=== PATIENT | female | born 1995 | race Caucasian/White ===

== ENCOUNTER 2016-11-21 06:05 | Inpatient (IN) | payer OTHER ==
[~2016-11-21] VITALS: Ht 172.7 cm; Wt 80.7 kg
[2016-11-21] MEDS ORDERED: IV RINGERS,LACTATED 1000ML 1,000 ML IV SCH ×2 (06:08→09:41)
[2016-11-21] MEDS ORDERED: MAG HYDROX/ALUMINUM HYD/SIMETH 30 ML ORAL.SUSP PO PRN ×2 (06:15→12:45)
[2016-11-21] MEDS ORDERED: FENTANYL PF 100 MCG/2 ML VIAL. IV PRN (06:15)
[2016-11-21] MEDS ORDERED: ONDANSETRON PF 4 MG/2 ML VIAL. IV PRN (06:15)
[2016-11-21] MEDS ORDERED: TERBUTALINE 1 MG/ML VIAL. SQ PRN (06:15)
[2016-11-21] MEDS ORDERED: BUTORPHANOL 2 MG/ML VIAL. IV PRN (06:15)
[2016-11-21] MEDS ORDERED: LIDOCAINE 1% PF 30 ML VIAL. INJ PRN (06:15)
[2016-11-21] MEDS ORDERED: IBUPROFEN 600 MG TABLET. PO PRN (06:15)
[2016-11-21] MEDS ORDERED: 0.9 % SODIUM CHLORIDE 10 ML DISP.SYRIN. IV PRN ×2 (06:15→12:45)
[2016-11-21] MEDS ORDERED: ACETAMINOPHEN 325 MG TABLET. PO PRN ×2 (06:15→12:45)
[2016-11-21] MEDS ORDERED: OXYTOCIN 30 UNIT/500 ML PREMIX 500 ML IV PRN ×3 (06:15→12:45)
[2016-11-21 07:06] LABS: HEMATOCRIT 34.8 % (36.0-47.0); HEMOGLOBIN 11.3 g/dL (12.0-15.5); RED BLOOD COUNT 4.76 x10^6/uL (3.50-5.40); RED CELL DISTRIBUTION WIDTH 16.5 % (11.5-14.5); WHITE BLOOD COUNT 8.7 x10^3/uL (4.0-11.0)
[2016-11-21] MEDS ORDERED: NALOXONE 0.4 MG/ML VIAL. IV PRN (09:45)
[2016-11-21] MEDS ORDERED: FENTANYL PF 100 MCG/2 ML VIAL. EPI PRN (09:45)
[2016-11-21] MEDS ORDERED: ROPIVacaine 0.2% IN 0.9%NACL PF 40 MG/20 ML DISP.SYRIN. EPI PRN (09:45)
[2016-11-21] MEDS ORDERED: L&D EPIDURAL CASSETTE 100 ML EP PRN (09:45)
[2016-11-21] MEDS ORDERED: BUPIVACAINE MPF 0.25% 10 ML VIAL. EPI PRN (09:45)
--- NOTE | 2016-11-21 12:38 | PDOC ---
VAGINAL DELIVERY DATE DATE: 11/21/16 TIME: 12:35 : 2 Para: 1 EDC: November 26, 2016 VAGINAL DELIVERY: VTX VACCUM ASSISTED: No PLACENTA: Spontaneous SEX: Male WEIGHT 9/ Nuchal Cord: No Amniotic Fluid: Clear EPISIOTOMY: No EXTENSION: Yes EBL 400cc COMPLICATIONS None CONDITION Stable Signs of Intrauterine Infectio: None Shoulder Dystocia: No DIAGNOSIS TIUP del Problems: TRIXIE GILL MD Nov 21, 2016 12:38
[2016-11-21] MEDS ORDERED: MAGNESIUM HYDROXIDE 2,400 MG/30 ML ORAL.SUSP. PO PRN (12:45)
[2016-11-21] MEDS ORDERED: SIMETHICONE 80 MG TAB.CHEW PO PRN (12:45)
[2016-11-21] MEDS ORDERED: HYDROCORTISONE 1% TOPICAL OINTMENT 30GM TUBE. TP PRN (12:45)
[2016-11-21] MEDS ORDERED: diphenhydrAMINE HCL 25 MG CAPSULE PO PRN (12:45)
[2016-11-21] MEDS ORDERED: BENZOCAINE 20% TOPICAL AEROSOL SPRAY 57GM CAN. TP PRN (12:45)
[2016-11-21] MEDS ORDERED: PHENYLEPH/MINERAL OIL/PETROLAT RECTAL OINTMENT 28GM TUBE. RC PRN (12:45)
[2016-11-21] MEDS ORDERED: ZOLPIDEM 5 MG TABLET. PO PRN (12:45)
[2016-11-21] MEDS: IBUPROFEN 800 MG TABLET. PO SCH (15:05)
[2016-11-21 16:30] VITALS: BP 118/70
[2016-11-21] MEDS ORDERED: FERROUS SULFATE 325 MG TABLET. PO SCH (17:00)
[2016-11-21 17:50] VITALS: BP 120/71
[2016-11-21 23:18] VITALS: BP 125/74
[2016-11-22] MEDS: IBUPROFEN 800 MG TABLET. PO SCH ×3 (01:55→23:41)
[2016-11-22 06:32] VITALS: BP 109/66
[2016-11-22] MEDS: HYDROCODONE/APAP 5/325MG TABLET. PO PRN ×2 (08:03→17:46)
[2016-11-22 15:00] VITALS: BP 100/53
--- NOTE | 2016-11-22 15:28 | PDOC ---
Provider Note Provider Note Doing well VSS Uterus NTTP Fu in AM TRIXIE GILL MD Nov 22, 2016 15:28
[2016-11-22] MEDS ORDERED: DIPHTH,PERTUSS(ACELL),TET TOX 0.5 ML DISP.SYRIN. VAX IM ONE (19:00)
[2016-11-22 22:00] VITALS: BP 114/67
[2016-11-23] MEDS: IBUPROFEN 800 MG TABLET. PO SCH (08:52)
--- NOTE | 2016-11-23 09:27 | PDOC3 ---
OB DISCHARGE SUMMARY DATE OF ADMISSION: 11/21/16 DATE OF DISCHARGE: 11/23/16 REASON FOR ADMISSION: Induction of labor PROCEDURES: Ultrasound INTRAPARTUM PROCEDURES: Spontanous Vag Deliv PROCEDURES: None OPERATIONS: None DISCHARGE DIAGNOSIS: Term Delivered DISCHARGE INFORMATION: Activity, Diet HOSPITAL COURSE unremarkable CONDITION AT DISCHARGE Stable TRIXIE GILL MD Nov 23, 2016 09:27
[2016-11-23] MEDS ORDERED: HYDR-971 PO (09:32)
[2016-11-23] MEDS ORDERED: NAPR500T3 PO (09:32)
--- NOTE | 2016-11-23 10:19 | PDOC1 ---
OB - History Hx of Present Care: Good Care Ultrasounds: Normal mid trimester US Obstetrical Complications: None Medical Complications: None Past Family/Social History * Past Medical, Surgical, Family and Obstetric Histories reviewed from chart. Rubella: Immune RPR/VDRL: Negative GBS Status: Negative HBsAG: Negative OB - Chief Complaint & HPI Date of Admission: Date of Admission: Nov 21, 2016 at 06:05 Chief Complaint/History : 2 Para: 1 EDC: November 26, 2016 Reason for admission: induction of labor Indication for induction: other Admission Nurse Assessment Rev: Yes Problems: OB - Admission Exam Physical Exam Vitals: VS - Last 72 Hours, by Label Date Time Temp Pulse Resp B/P Pulse Ox O2 Delivery O2 Flow Rate FiO2 11/22/16 22:00 98.0 84 18 114/67 100 98.0 11/22/16 17:46 18 Room Air 11/22/16 15:00 98.1 87 18 100/53 96 Room Air 98.1 11/22/16 10:00 18 11/22/16 08:03 18 Room Air 11/22/16 06:32 98.1 81 18 109/66 98.1 11/21/16 23:18 98.7 94 18 125/74 98.7 11/21/16 17:50 98.2 98 18 120/71 98.2 11/21/16 16:30 98.1 91 16 118/70 99 98.1 11/21/16 10:27 22 HEENT: Normal, Nasal Mucosa Normal, Oropharynx Normal, Moist Membranes, Fontanelles Normal Heart: Regular Rate Lungs: Clear, Equal Abdomen: Gravid Extremities: Normal Pulses, No tenderness or swelling Reflexes: Normal Cervical Dilatation: 2cm Effacement: 50% Station: -2 Membranes: Intact Amniotic Fluid: Clear Heart Rate: Normal Accelerations: Accelerations Present Contractions on Admission: >10 Minutes Apart Intensity: Moderate Assessment/Plan Assessment/Plan TIUP Induction ACSVD TRIXIE GILL MD Nov 23, 2016 10:19
[2016-11-23 15:03] VITALS: BP 110/66
== END 2016-11-23 16:26 | disposition home or self-care (01) | DRG 775 ==
LOC: 3 SO LND 06:05 → 3 NORTH 14:59
PROVIDERS: ADMIT Specialist; ATTEND Specialist
PROC: 10E0XZZ Delivery of Products of Conception, External Approach (ICD-10-PCS; principal; 2016-11-21)
PROC: 3E033VJ Introduction of Other Hormone into Peripheral Vein, Percutaneous Approach (ICD-10-PCS; 2016-11-21)
DX: O80 Encounter for full-term uncomplicated delivery (principal); Z3A.38 38 weeks gestation of pregnancy; Z37.0 Single live birth
CPT/HCPCS: 36415; 85014; 85027; 86593; 86850; 86900; 86901; 90715; J2590; J3010; J7120

== ENCOUNTER 2017-05-18 16:55 | Emergency (ER) | payer OTHER ==
[~2017-05-18] VITALS: Ht 167.6 cm; Wt 103.4 kg
[~2017-05-18 16:55] MED LIST: HYDR-971 PO; NAPR500T4 PO
--- NOTE | 2017-05-18 17:17 | PHYS DOC ---
Past Medical History Past Medical History: No Pertinent History Past Surgical History: No Surgical History Alcohol Use: None Drug Use: None Adult General Chief Complaint Chief Complaint: ABDOMINAL PAIN HPI HPI Patient is a 21 year old female presents the ED complaining of right upper quadrant pain 2 days. Patient states the pain is worse after eating. Describes the pain as crampy. Rates the pain as 8 out of 10. Associated symptoms include nausea. Denies chest pain, shortness of breath, dizziness, weakness, vomiting, fever, dysuria or vaginal discharge/bleeding. Review of Systems Review of Systems Constitutional: Denies fever or chills [] Eyes: Denies change in visual acuity, redness, or eye pain [] HENT: Denies nasal congestion or sore throat [] Respiratory: Denies cough or shortness of breath [] Cardiovascular: No additional information not addressed in HPI [] GI: Complains of abdominal pain and nausea. Denies vomiting, bloody stools or diarrhea [] : Denies dysuria or hematuria [] Musculoskeletal: Denies back pain or joint pain [] Integument: Denies rash or skin lesions [] Neurologic: Denies headache, focal weakness or sensory changes [] Endocrine: Denies polyuria or polydipsia [] Current Medications Current Medications Current Medications Medications (Trade) Dose Ordered Sig/Tiffany Start Time Stop Time Status Last Admin Dose Admin Ceftriaxone Sodium 50 ml @ 100 mls/hr 1X ONCE 05/18/17 18:00 05/18/17 18:29 DC 05/18/17 18:05 100 MLS/HR Ketorolac Tromethamine (Toradol) 30 mg 1X ONCE 05/18/17 18:45 05/18/17 18:46 DC 05/18/17 18:51 30 MG Allergies Allergies Allergies Coded Allergies Type Severity Reaction Last Updated Verified No Known Drug Allergies 03/17/15 No Physical Exam Physical Exam Constitutional: Well developed, well nourished, no acute distress, non-toxic appearance. [] HENT: Normocephalic, atraumatic, bilateral external ears normal, oropharynx moist, no oral exudates, nose normal. [] Eyes: PERRLA, EOMI, conjunctiva normal, no discharge. [] Neck: Normal range of motion, no tenderness, supple, no stridor. [] Cardiovascular:Heart rate regular rhythm, no murmur [] Lungs & Thorax: Bilateral breath sounds clear to auscultation [] Abdomen: Bowel sounds normal, soft, MILD RUQ TENDERNESS, no masses, no pulsatile masses. [] Skin: Warm, dry, no erythema, no rash. [] Back: No tenderness, no CVA tenderness. [] Extremities: No tenderness, no cyanosis, no clubbing, ROM intact, no edema. [] Neurologic: Alert and oriented X 3, normal motor function, normal sensory function, no focal deficits noted. [] Psychologic: Affect normal, judgement normal, mood normal. [] Current Patient Data Vital Signs Vital Signs Date Time Temp Pulse Resp B/P (MAP) Pulse Ox O2 Delivery O2 Flow Rate FiO2 05/18/17 19:45 85 16 127/88 (101) 98 Room Air 05/18/17 17:01 99.3 99.3 Lab Values Laboratory Tests Test 05/18/17 17:01 05/18/17 17:06 05/18/17 17:12 Urine Collection Type Unknown Urine Color Yellow Urine Clarity Clear Urine pH 5.5 Urine Specific [place] 1.025 Urine Protein Negative mg/dL (NEG-TRACE) Urine Glucose (UA) Negative mg/dL (NEG) Urine Ketones (Stick) Negative mg/dL (NEG) Urine Blood Negative (NEG) Urine Nitrite Positive (NEG) Urine Bilirubin Negative (NEG) Urine Urobilinogen Dipstick 0.2 mg/dL (0.2 mg/dL) Urine Leukocyte Esterase Negative (NEG) Urine RBC 0 /HPF (0-2) Urine WBC 1-4 /HPF (0-4) Urine Squamous Epithelial Cells Few /LPF Urine Bacteria Mod /HPF (0-FEW) Urine Mucus Marked /LPF POC Urine HCG, Qualitative Hcg negative (Negative) White Blood Count 6.6 x10^3/uL (4.0-11.0) Red Blood Count 5.13 x10^6/uL (3.50-5.40) Hemoglobin 13.0 g/dL (12.0-15.5) Hematocrit 38.5 % (36.0-47.0) Mean Corpuscular Volume 75 fL (79-100) L Mean Corpuscular Hemoglobin 25 pg (25-35) Mean Corpuscular Hemoglobin Concent 34 g/dL (31-37) Red Cell Distribution Width 15.2 % (11.5-14.5) H Platelet Count 213 x10^3/uL (140-400) Sodium Level 142 mmol/L (136-145) Potassium Level 3.7 mmol/L (3.5-5.1) Chloride Level 104 mmol/L (98-107) Carbon Dioxide Level 27 mmol/L (21-32) Anion Gap 11 (6-14) Blood Urea Nitrogen 8 mg/dL (7-20) Creatinine 0.6 mg/dL (0.6-1.0) Estimated GFR (Cockcroft-Gault) 127.5 BUN/Creatinine Ratio 13 (6-20) Glucose Level 103 mg/dL (70-99) H Calcium Level 9.1 mg/dL (8.5-10.1) Total Bilirubin 0.2 mg/dL (0.2-1.0) Aspartate Amino Transferase (AST) 77 U/L (15-37) H Alanine Aminotransferase (ALT) 125 U/L (14-59) H Alkaline Phosphatase 93 U/L (46-116) Total Protein 7.8 g/dL (6.4-8.2) Albumin 3.7 g/dL (3.4-5.0) Albumin/Globulin Ratio 0.9 (1.0-1.7) L Lipase 143 U/L (73-393) Laboratory Tests 05/18/17 17:12 Laboratory Tests 05/18/17 17:12 EKG EKG [] Radiology/Procedures Radiology/Procedures []PROCEDURE: ABDOMEN LTD Limited abdominal ultrasound History:RUQ PAIN, PT ATE 1 HR AGO Findings: Aorta: Not documented Inferior vena cava: Patent Pancreas: Poorly visualized Liver: Enlarged. Coarse echogenicity compatible with fatty infiltration. Gallbladder: Contracted, limiting exam. No obvious gallstones or pericholecystic fluid. Bile ducts: No evidence of dilatation Right kidney: 13.1 cm longitudinal without hydronephrosis. Impression: 1. Hepatomegaly with fatty infiltration. 2. Gallbladder contraction, limiting evaluation. No obvious gallstone. Course & Med Decision Making Course & Med Decision Making Pertinent Labs and Imaging studies reviewed. (See chart for details) []Patient's pain resolved. Vital stable, no acute distress. Discussed labs and imaging with patient. Patient states she is feeling much better. Patient treated with Rocephin in ED for urinary tract infection. Will discharge with Macrobid. Discussed follow-up outpatient for follow-up liver enzyme monitoring. On examination, abdomen is soft nontender nondistended. No peritoneal signs. Patient tolerated by mouth. Provided contact information education for GI follow -up. Discussed reasons to return to the ED. Patient understands and agrees with plan. Family at bedside. Dragon Disclaimer Dragon Disclaimer This electronic medical record was generated, in whole or in part, using a voice recognition dictation system. Departure Departure Impression: Primary Impression: Urinary tract infection Additional Impressions: Abdominal pain Elevated liver enzymes Disposition: HOME, SELF-CARE Condition: IMPROVED Referrals: NO PCP (PCP) EDUARDO PAULINO MD, SCOTT S MD Patient Instructions: Abdominal Pain, Urinary Tract Infection Scripts Nitrofurantoin Monohyd/M-Cryst (MACROBID 100 MG CAPSULE) 100 Mg Capsule 1 CAP PO BID, #14 CAP Prov: GENEVIEVE NAVARRETE 05/18/17 Problem Qualifiers GENEVIEVE NAVARRETE May 18, 2017 17:17
[2017-05-18 17:19] LABS: BILIRUBIN,URINE NEGATIVE (NEG); GLUCOSE,URINE NEGATIVE (NEG); NITRITE,URINE POSITIVE (NEG); PH,URINE 5.5; PROTEIN,URINE NEGATIVE (NEG-TRACE); UROBILINOGEN,URINE 0.2 mg/dL (0.2 mg/dL)
[2017-05-18 17:19] LABS: HEMATOCRIT 38.5 % (36.0-47.0); RED BLOOD COUNT 5.13 x10^6/uL (3.50-5.40); RED CELL DISTRIBUTION WIDTH 15.2 % (11.5-14.5); WHITE BLOOD COUNT 6.6 x10^3/uL (4.0-11.0)
[2017-05-18 17:26] LABS: BACTERIA,URINE MOD /HPF (0-FEW); RBC,URINE 0 /HPF (0-2); SQUAMOUS EPITHELIAL CELL,UR FEW /LPF
[2017-05-18 17:31] LABS: CALCIUM 9.1 mg/dL (8.5-10.1); CREATININE 0.6 mg/dL (0.6-1.0); GFR 127.5; POTASSIUM 3.7 mmol/L (3.5-5.1)
[2017-05-18 17:37] LABS: ALBUMIN 3.7 g/dL (3.4-5.0); ALBUMIN/GLOBULIN RATIO 0.9 (1.0-1.7); TOTAL BILIRUBIN 0.2 mg/dL (0.2-1.0); TOTAL PROTEIN 7.8 g/dL (6.4-8.2)
--- NOTE | 2017-05-18 18:44 | RAD ---
Limited abdominal ultrasound History:RUQ PAIN, PT ATE 1 HR AGO Findings: Aorta: Not documented Inferior vena cava: Patent Pancreas: Poorly visualized Liver: Enlarged. Coarse echogenicity compatible with fatty infiltration. Gallbladder: Contracted, limiting exam. No obvious gallstones or pericholecystic fluid. Bile ducts: No evidence of dilatation Right kidney: 13.1 cm longitudinal without hydronephrosis. Impression: 1. Hepatomegaly with fatty infiltration. 2. Gallbladder contraction, limiting evaluation. No obvious gallstone. Electronically signed by: Lavelle Pineda MD (05/18/2017 6:41 PM) [place] [id number]
[2017-05-18] MEDS ORDERED: KETOROLAC 30 MG/ML INJ. IV ONE (18:45)
[2017-05-18] MEDS ORDERED: NITR100C62 PO (19:26)
[2017-05-18 19:45] VITALS: BP 127/88
== END 2017-05-18 19:54 | disposition home or self-care (01) ==
LOC: ER 16:55
DX: N39.0 Urinary tract infection, site not specified (principal); R74.8 Abnormal levels of other serum enzymes; R11.0 Nausea
CPT/HCPCS: 36415; 76705; 80053; 81001; 81025; 83690; 85027; 96365; 96375; 99285; J0690; J1885

== ENCOUNTER 2017-10-15 11:08 | Emergency (ER) | payer OTHER ==
[2017-10-15 11:27] LABS: URINE HCG POC HCG NEGATIVE (Negative)
[2017-10-15 12:37] LABS: ADD MAN DIFF? NO
[2017-10-15 12:43] LABS: BASO % 0 % (0-3); BILIRUBIN,URINE NEGATIVE (NEG); CLARITY,URINE CLEAR; COLOR,URINE AMBER; EOS # 0.2 x10^3/uL (0.0-0.7); EOS % 3 % (0-3); GLUCOSE,URINE NEGATIVE (NEG); HEMATOCRIT 41.3 % (36.0-47.0); HEMOGLOBIN 13.7 g/dL (12.0-15.5); LYMPH # 2.3 x10^3/uL (1.0-4.8); LYMPH % 27 % (24-48); MEAN CORPUSCULAR HEMOGLOBIN 27 pg (25-35); MEAN CORPUSCULAR HGB CONC 33 g/dL (31-37); MEAN CORPUSCULAR VOLUME 80 fL (79-100); MONO # 0.6 x10^3/uL (0.0-1.1); MONO % 8 % (0-9); NEUT # 5.2 x10^3uL (1.8-7.7); NEUT % 62 % (31-73); NITRITE,URINE NEGATIVE (NEG); PH,URINE 5.5; PLATELET COUNT 233 x10^3/uL (140-400); PROTEIN,URINE NEGATIVE (NEG-TRACE); RED BLOOD COUNT 5.14 x10^6/uL (3.50-5.40); RED CELL DISTRIBUTION WIDTH 13.9 % (11.5-14.5); UROBILINOGEN,URINE 0.2 mg/dL (0.2 mg/dL); WHITE BLOOD COUNT 8.4 x10^3/uL (4.0-11.0)
[2017-10-15 12:51] LABS: ANION GAP 10 (6-14); BLOOD UREA NITROGEN 8 mg/dL (7-20); CARBON DIOXIDE 26 mmol/L (21-32); CHLORIDE 104 mmol/L (98-107); CREATININE 0.7 mg/dL (0.6-1.0); GFR 105.6; GLUCOSE 90 mg/dL (70-99); POTASSIUM 3.9 mmol/L (3.5-5.1); SODIUM 140 mmol/L (136-145)
[2017-10-15 12:54] LABS: C-REACTIVE PROTEIN 8.1 mg/L (0-3.3)
[2017-10-15 13:03] LABS: BACTERIA,URINE 0 /HPF (0-FEW); RBC,URINE 0 /HPF (0-2); SQUAMOUS EPITHELIAL CELL,UR MOD /LPF
[2017-10-16 14:26] LABS: CHLAMYDIA PROBE Negative (Negative); GC PROBE Negative (Negative)
== END 2017-10-15 15:05 | disposition home or self-care (01) ==
LOC: ER 11:08
DX: R10.2 Pelvic and perineal pain (principal); N76.0 Acute vaginitis; B96.89 Other specified bacterial agents as the cause of diseases classified elsewhere
CPT/HCPCS: 36415; 80048; 81001; 81025; 85025; 86140; 87491; 87591; 99284; Q0111